=== PATIENT | male | born 1930 | race Caucasian/White ===

== ENCOUNTER 2017-09-26 13:35 | Inpatient (IN) | payer OTHER, MEDICARE ==
[2017-09-26] MEDS ORDERED: ASPIRIN 81 MG TABLET, CHEWABLE PO ONE (14:02)
[2017-09-26] MEDS ORDERED: DILTIAZEM HCL INJ 25 MG/5 ML VIAL IV ONE (14:13)
[2017-09-26] MEDS ORDERED: DILTIAZEM HCL/D5W 125 MG/125 ML RTUINJ IV PRN (14:13)
[2017-09-26] MEDS ORDERED: NORMAL SALINE 500 ML IV ONE ×2 (14:14→23:30)
[2017-09-26 14:33] LABS: ABSOLUTE LYMPHOCYTES (AUTO) 0.8 10^3/uL (0.5-4.7); ABSOLUTE MONOCYTES (AUTO) 0.8 10^3/uL (0.1-1.4); ABSOLUTE NEUT (AUTO) 8.6 10^3/uL (1.7-8.2); BASOPHILS % (AUTO) 0.2 % (0-2); EOSINOPHILS % (AUTO) 0.1 % (0-6); HEMATOCRIT 41.9 % (37.9-51.0); HEMOGLOBIN 13.9 g/dL (13.5-17.0); HGB HCT DIFFERENCE -0.2; LYMPHOCYTES % (AUTO) 7.8 % (13-45); MEAN CORPUSCULAR HEMOGLOBIN 33.6 pg (27.0-33.4); MEAN CORPUSCULAR HGB CONC 33.2 g/dL (32.0-36.0); MEAN CORPUSCULAR VOLUME 101 fl (80-97); MONOCYTES % (AUTO) 8.3 % (3-13); RED BLOOD COUNT 4.15 10^6/uL (4.35-5.55); RED CELL DISTRIBUTION WIDTH 13.4 % (11.5-14.0); SEGMENTED NEUTROPHILS % (AUTO) 83.6 % (42-78); WHITE BLOOD COUNT 10.2 10^3/uL (4.0-10.5)
--- NOTE | 2017-09-26 14:34 | ER Document Report ---
ED Cardiac - General Chief Complaint: Chest Pain Stated Complaint: CHEST PAIN Time Seen by Provider: 09/26/17 14:05 Information source: Patient, Relative - Son helps with history as well, patient somewhat hard of hearing - HPI Patient complains to provider of: Chest pain Notes: 86-year-old male with history of prior myocardial infarction, hypertension presents with chest discomfort he describes as sharp in the left pectoral region. It is somewhat pleuritic. It is nonradiating though he has had some numbness in his left hand. He noted this this morning approximately at 0500 while awakening. He has describes some mild shortness of breath to his family though initially told me there were no other associated symptoms. No cough or cold symptoms otherwise, fever. He has had some mild generalized aches on further questioning. Denies history of arrhythmia. Denies anticoagulation. Denies any bleeding currently. Denies any trauma. No syncope, palpitations, hemoptysis. Patient does not have a local physician as he is [place] [facility] [place] and has not been seen by the [facility] yet. - Related Data Allergies/Adverse Reactions: No Known Allergies Allergy (Verified 09/26/17 13:38) Past Medical History - Social History Smoking Status: Never Smoker Family History: Reviewed & Not Pertinent Review of Systems - Review of Systems -: Yes All other systems reviewed and negative Physical Exam - Vital signs Vitals: Pulse Pulse Ox 110 H 100 09/26/17 13:46 09/26/17 13:46 Interpretation: Tachycardic - Notes Notes: Physical Exam: GENERAL: VS as per nursing doc. Well-appearing, well-nourished and in no acute distress. HEAD: Atraumatic, normocephalic. EYES: Pupils equal round and reactive to light, extraocular movements intact, sclera anicteric, no conjunctival injection or discharge. ENT: Nares patent, oropharynx clear without exudates. Moist mucous membranes. NECK: Supple without lymphadenopathy. No JVD. No Carotid Bruits. LUNGS: Breath sounds are diminished bilaterally and equal. No wheezes. Basalilar rales bilaterally. HEART: Tachycardic, irregularly irregular. No murmur noted.. Equal peripheral pulses. ABDOMEN: Soft, non-tender EXTREMITIES: No calf tenderness. Negative Homans. No pitting edema. NEUROLOGICAL: Cranial nerves grossly intact. Normal speech. Normal sensory and motor exams. No gross cerebellar abnormalities. PSYCH: Normal mood, normal affect. SKIN: Warm, dry, no cyanosis, no splinter hemorrhages. Cap refill < 2 sec. Course - Vital Signs Vital signs: Temp Pulse Resp BP Pulse Ox 98.1 F 84 24 H 104/49 L 89 L 09/26/17 18:56 09/26/17 20:00 09/26/17 18:56 09/26/17 20:00 09/26/17 18:56 - Laboratory Result Diagrams: 09/26/17 14:10 09/26/17 14:10 Laboratory results interpreted by me: 09/26/17 09/26/17 09/26/17 14:10 14:10 14:10 RBC 4.15 L MCV 101 H MCH 33.6 H Seg Neutrophils % 83.6 H Lymphocytes % 7.8 L Absolute Neutrophils 8.6 H D-Dimer 1.27 H Est GFR (Non-Af Amer) 56 L Direct Bilirubin 0.5 H Creatine Kinase 45 L - Diagnostic Test Radiology reviewed: Reports reviewed - CTA of chest showed small bilateral effusions. - Consults Busteed/Christopher Time consulted: 16:15 - They will see and admit. Discharge - Discharge Clinical Impression: Atrial fibrillation with rapid ventricular response Chest pain Qualifiers: Chest pain type: precordial pain Qualified Code(s): R07.2 - Precordial pain Condition: Fair Disposition: ADMITTED INPATIENT Admitting Provider: Dr. White Unit Admitted: [facility]
[2017-09-26 14:53] LABS: ALANINE AMINOTRANSFERASE 35 U/L (21-72); ALBUMIN 4.2 g/dL (3.5-5.0); ALKALINE PHOSPHATASE 112 U/L (38-126); ANION GAP 14 (5-19); ASPARTATE AMINO TRANSFERASE 26 U/L (17-59); BILIRUBIN,DIRECT 0.5 mg/dL (0.0-0.4); BILIRUBIN,TOTAL 1.1 mg/dL (0.2-1.3); BLOOD UREA NITROGEN 17 mg/dL (7-20); CALCIUM 9.4 mg/dL (8.4-10.2); CARBON DIOXIDE 29 mmol/L (22-30); CHLORIDE 101 mmol/L (98-107); CREATINE KINASE 45 U/L (55-170); CREATININE RESULT 1.23 mg/dL (0.52-1.25); GLUCOSE 105 mg/dL (75-110); POTASSIUM 4.2 mmol/L (3.6-5.0); SODIUM 143.6 mmol/L (137-145); TOTAL PROTEIN 7.2 g/dL (6.3-8.2)
--- NOTE | 2017-09-26 15:04 | RADIOLOGY REPORT (SQ) ---
EXAM DESCRIPTION: CHEST SINGLE VIEW COMPLETED DATE/TIME: 09/26/2017 2:47 pm REASON FOR STUDY: cp COMPARISON: None. EXAM PARAMETERS: NUMBER OF VIEWS: One view. TECHNIQUE: Single frontal radiographic view of the chest acquired. RADIATION DOSE: NA LIMITATIONS: None. FINDINGS: LUNGS AND PLEURA: Bilateral pleural effusions. No opacities. MEDIASTINUM AND HILAR STRUCTURES: No masses. Contour normal. HEART AND VASCULAR STRUCTURES: Heart enlarged without overt failure. BONES: No acute findings. HARDWARE: None in the chest. OTHER: No other significant finding. IMPRESSION: Heart enlarged without overt failure. Bilateral pleural effusions. TECHNICAL DOCUMENTATION: JOB ID: [id number] [employer]- All Rights Reserved
[2017-09-26 15:05] LABS: TROPONIN I < 0.012 ng/mL
--- NOTE | 2017-09-26 15:59 | RADIOLOGY REPORT (SQ) ---
EXAM DESCRIPTION: CTA CHEST COMPLETED DATE/TIME: 09/26/2017 3:43 pm REASON FOR STUDY: Pleuritic CP, Elevated DDimer, New onset CP/Afib COMPARISON: Chest radiograph TECHNIQUE: CT scan of the chest performed using helical scanning technique with dynamic intravenous contrast injection. Images reviewed with lung, soft tissue and bone windows. Reconstructed coronal and sagittal MPR images reviewed. Additional 3 dimensional post-processing performed to develop Maximal Intensity Projection images (MN P). All images stored on PACS. All CT scanners at this facility use dose modulation, iterative reconstruction, and/or weight based d osing when appropriate to reduce radiation dose to as low as reasonably achievable (ALARA). [facility]: Dose Right [facility]: CareDose [facility]: Dose Right [facility]: Teradose 4D [facility]: Left of the [employer] CONTRAST TYPE AND DOSE: contrast/concentration: Isovue 370.00 mg/ml; Total Contrast Delivered: 78.0 ml; Total Saline Delivered: 97.0 ml 78 Isovue 370- low osmolar. Contrast bolus optimized for the pulmonary arteries. Not diagnostic for the aorta. RENAL FUNCTION: Creatinine 1.23 RADIATION DOSE: . LIMITATIONS: None. FINDINGS: LUNGS AND PLEURA: Small bilateral pleural effusions. Minimal basilar airspace disease. AORTA AND GREAT VESSELS: No aneurysm. Contrast bolus not optimized for the aorta. HEART: No pericardial effusion. No significant coronary artery calcifications. PULMONARY ARTERIES: No emboli visualized in the main pulmonary arteries or the segmental branches. HILAR AND MEDIASTINAL STRUCTURES: No identified masses or abnormal nodes. HARDWARE: None in the chest. UPPER ABDOMEN: No significant findings. Limited exam. THYROID AND OTHER SOFT TISSUES: No masses. No adenopathy. BONES: No acute or significant finding. 3D MIPS: Confirm above findings. OTHER: No other significant finding. IMPRESSION: No pulmonary emboli. Small bilateral pleural effusions with basilar airspace disease. COMMENT: Quality ID # [id number]: Final reports with documentation of one or more dose reduction techniques (e.g., Automated exposure control, adjustment of the mA and/or kV according to patient size, use of iterative reconstruction technique) TECHNICAL DOCUMENTATION: JOB ID: [id number] [employer]- All Rights Reserved
[2017-09-26] MEDS ORDERED: OXYCODONE-ACETAMINOPHEN 5-325 MG TABLET PO PRN (17:00)
[2017-09-26] MEDS ORDERED: ONDANSETRON HCL INJ/PF 4 MG/2 ML SDV IV PRN (17:00)
[2017-09-26] MEDS ORDERED: ACETAMINOPHEN 325 MG TABLET PO PRN (17:00)
[2017-09-26] MEDS ORDERED: ZOLPIDEM TARTRATE 5 MG TABLET PO PRN (17:00)
[2017-09-26] MEDS ORDERED: METOPROLOL SUCCINATE 50 MG TAB.SR.24H PO ONE (18:30)
--- NOTE | 2017-09-26 18:46 | PDOC H&P ---
History of Present Illness Admission Date/PCP: 09/26/17 16:56 Patient complains of: Chest pain since this morning History of Present Illness: GULSHAN FRASER is a 86 year old male was brought to ED by his power of real estate attorney since patient had been experiencing chest pain in the middle of his chest since this morning. Patient took 4 nitroglycerin with not major improvement. History taking has been somewhat difficult that because patient is hard of hearing. He related that pain went slowly by itself. In addition chest pain was accompanied by shortness of breath. He does have a history of a heart attack and had a stated putting 10 years ago. He had recently moved to this area and he had not been taking his regular medications. He had not been evaluated by a weigher and grader for a while. When patient arrived to emergency room he was found to be on atrial fibrillation with a ventricular rate of 130. Patient was administered 10 mg of Cardizem IV with further improvement. Our service was contacted for further management and prompted to admit. Past Medical History Cardiac Medical History: Reports: Myocardial Infarction, Hypertension Pulmonary Medical History: Reports: None EENT Medical History: Reports: None Neurological Medical History: Reports: None Endocrine Medical History: Reports: None Renal/ Medical History: Reports: None Malignancy Medical History: Reports: None GI Medical History: Reports: Gastroesophageal Reflux Disease Musculoskeltal Medical History: Reports: Arthritis Skin Medical History: Reports: None Psychiatric Medical History: Reports: None Traumatic Medical History: Reports: None Hematology: Reports: None Infectious Medical History: Reports: None Past Surgical History Past Surgical History: Reports: Cardiac Catheterization, Coronary Stent Social History Information 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 Lives with: Alone Smoking Status: Never Smoker Frequency of Alcohol Use: None Hx Recreational Drug Use: No Drugs: None Hx Prescription Drug Abuse: No - Advance Directive Resuscitation Status: Do Not Resuscitate Family History Family History: CAD, Hypertension Parental Family History Reviewed: Yes Children Family History Reviewed: Yes Sibling(s) Family History Reviewed.: Yes Medication/Allergy Allergies/Adverse Reactions: No Known Allergies Allergy (Verified 09/26/17 13:38) Review of Systems ROS unobtainable: Other - Difficulty since patient is hard of hearing Constitutional: ABSENT: headache(s), night sweats, weakness Eyes: ABSENT: visual disturbances Ears: PRESENT: other - Hard of hearing Cardiovascular: PRESENT: chest pain, dyspnea on exertion. ABSENT: palpitations Respiratory: PRESENT: dyspnea Gastrointestinal: ABSENT: abdominal pain, nausea, vomiting Neurological: ABSENT: focal weakness Physical Exam Vital Signs: Temp Pulse Resp BP Pulse Ox 110 H 21 H 100/72 95 09/26/17 13:46 09/26/17 16:42 09/26/17 16:42 09/26/17 16:42 General appearance: PRESENT: no acute distress, cooperative, obese Head exam: PRESENT: atraumatic, normocephalic Eye exam: PRESENT: EOMI, PERRLA Mouth exam: PRESENT: moist Teeth exam: PRESENT: poor dentation Neck exam: PRESENT: full ROM. ABSENT: JVD, tenderness Respiratory exam: PRESENT: crackles, decreased breath sounds Cardiovascular exam: PRESENT: irregular rhythm. ABSENT: diastolic murmur, systolic murmur Vascular exam: PRESENT: normal capillary refill GI/Abdominal exam: PRESENT: normal bowel sounds, soft. ABSENT: guarding, tenderness Extremities exam: ABSENT: joint swelling, pedal edema Musculoskeletal exam: PRESENT: full ROM Neurological exam: PRESENT: alert, oriented to person, oriented to place Psychiatric exam: PRESENT: appropriate affect, normal mood Skin exam: PRESENT: normal color Results Impressions: Chest X-Ray 09/26/17 14:02 IMPRESSION: Heart enlarged without overt failure. Bilateral pleural effusions. Chest/Abdomen CTA 09/26/17 15:02 IMPRESSION: No pulmonary emboli. Small bilateral pleural effusions with basilar airspace disease. Assessment & Plan - Diagnosis (1) GERD (gastroesophageal reflux disease) Qualifiers: Esophagitis presence: esophagitis presence not specified Qualified Code(s) : K21.9 - Gastro-esophageal reflux disease without esophagitis Is this a current diagnosis for this admission?: Yes Plan: Patient will be placed on PPI (2) Atrial fibrillation with rapid ventricular response Is this a current diagnosis for this admission?: Yes Plan: Noted that he was supposed to be on Toprol-XL 100 mg 1 p.o. daily and to restart. Patient will be placed on telemetry unit and will trend troponin. To consult cardiology. Will place patient on Eliquis adjusted to his age (3) Chest pain Qualifiers: Chest pain type: precordial pain Qualified Code(s): R07.2 - Precordial pain Is this a current diagnosis for this admission?: Yes Plan: Likely precipitated due to rapid ventricular response. To trend troponin and consult cardiology (4) Pleural effusion Is this a current diagnosis for this admission?: Yes Plan: Order BNP. Patient may require Lasix since likely is due to cardiac issue (5) Chronic kidney disease (CKD) stage G1/A2, glomerular filtration rate (GFR) equal to or greater than 90 mL/min/1.73 square meter and albuminuria creatinine ratio between 30-299 mg/g Is this a current diagnosis for this admission?: Yes Plan: Will trend for now. [facility] - Time Time Spent: 50 to 70 Minutes Medications reviewed and adjusted accordingly: Yes Anticipated discharge: Home with Homehealth Within: within 48 hours - Inpatient Certification Based on my medical assessment, after consideration of the patient's comorbidities, presenting symptoms, or acuity I expect that the services needed warrant INPATIENT care.: Yes I certify that my determination is in accordance with my understanding of Medicare's requirements for reasonable and necessary INPATIENT services [42 CFR 412.3e].: Yes Medical Necessity: Need Close Monitoring Due to Risk of Patient Decompensation
[2017-09-26] MEDS: LANSOPRAZOLE 15 MG TAB.RAP.DR PO SCH (18:59)
[2017-09-26] MEDS: APIXABAN 2.5 MG TABLET PO SCH (18:59)
[2017-09-26 20:42] LABS: TROPONIN I 0.02 ng/mL
[2017-09-26] MEDS: ATORVASTATIN CALCIUM 40 MG TABLET PO SCH (22:05)
[2017-09-26] MEDS: ASPIRIN 81 MG TABLET, ENT COATED PO SCH (22:05)
[2017-09-27] MEDS ORDERED: NORMAL SALINE 1000 ML 1,000 ML IV ONE (01:00)
[2017-09-27 02:22] LABS: ABSOLUTE LYMPHOCYTES (AUTO) 1.3 10^3/uL (0.5-4.7); ABSOLUTE MONOCYTES (AUTO) 0.9 10^3/uL (0.1-1.4); ABSOLUTE NEUT (AUTO) 4.6 10^3/uL (1.7-8.2); BASOPHILS % (AUTO) 0.2 % (0-2); EOSINOPHILS % (AUTO) 0.7 % (0-6); HEMATOCRIT 33.8 % (37.9-51.0); HGB HCT DIFFERENCE 0.4; LYMPHOCYTES % (AUTO) 18.5 % (13-45); MEAN CORPUSCULAR HEMOGLOBIN 33.9 pg (27.0-33.4); MEAN CORPUSCULAR HGB CONC 33.7 g/dL (32.0-36.0); MEAN CORPUSCULAR VOLUME 101 fl (80-97); MONOCYTES % (AUTO) 12.8 % (3-13); RED BLOOD COUNT 3.36 10^6/uL (4.35-5.55); RED CELL DISTRIBUTION WIDTH 13.1 % (11.5-14.0); SEGMENTED NEUTROPHILS % (AUTO) 67.8 % (42-78); WHITE BLOOD COUNT 6.8 10^3/uL (4.0-10.5)
[2017-09-27 02:23] LABS: HEMOGLOBIN 11.4 g/dL (13.5-17.0)
[2017-09-27 02:40] LABS: ANION GAP 9 (5-19); BLOOD UREA NITROGEN 17 mg/dL (7-20); CARBON DIOXIDE 26 mmol/L (22-30); CHLORIDE 109 mmol/L (98-107); CREATININE RESULT 1.21 mg/dL (0.52-1.25); GLUCOSE 106 mg/dL (75-110); SODIUM 144.1 mmol/L (137-145)
[2017-09-27] MEDS: LANSOPRAZOLE 15 MG TAB.RAP.DR PO SCH ×2 (05:25→16:08)
[2017-09-27] MEDS ORDERED: METOPROLOL SUCCINATE 50 MG TAB.SR.24H PO SCH (10:00)
[2017-09-27] MEDS: APIXABAN 2.5 MG TABLET PO SCH ×2 (10:14→18:36)
[2017-09-27] MEDS: DOCUSATE SODIUM 100 MG CAPSULE PO SCH (10:15)
[2017-09-27] MEDS ORDERED: METOPROLOL SUCCINATE 25 MG TAB.SR.24H PO ONE (14:31)
--- NOTE | 2017-09-27 16:34 | PDOC PROGRESS REPORT ---
Subjective Progress Note for:: 09/27/17 Subjective:: Patient relates that he is not having chest pain any longer ROS All organ systems evaluated and negative except as in subjective All significant laboratories and diagnostics have been reviewed Reason For Visit: ATRIAL FIBRILLATION WITH AVR,CHEST PAIN Physical Exam Vital Signs: Temp Pulse Resp BP Pulse Ox 99.0 F 88 20 111/69 98 09/27/17 03:37 09/27/17 06:00 09/27/17 03:37 09/27/17 06:00 09/27/17 03:37 Intake & Output 09/26/17 09/27/17 09/28/17 06:59 06:59 06:59 Intake Total 1740 Output Total 650 Balance 1090 Weight 94 kg General appearance: PRESENT: no acute distress, cooperative, obese Head exam: PRESENT: atraumatic, normocephalic Eye exam: PRESENT: EOMI, PERRLA Ear exam: PRESENT: normal external ear exam Mouth exam: PRESENT: moist, neck supple Teeth exam: PRESENT: poor dentation Neck exam: PRESENT: full ROM. ABSENT: JVD, tenderness Respiratory exam: PRESENT: clear to auscultation francisco Cardiovascular exam: PRESENT: irregular rhythm. ABSENT: diastolic murmur, systolic murmur Vascular exam: PRESENT: normal capillary refill GI/Abdominal exam: PRESENT: normal bowel sounds, soft. ABSENT: guarding, tenderness Extremities exam: ABSENT: joint swelling, pedal edema Musculoskeletal exam: PRESENT: full ROM Neurological exam: PRESENT: alert, awake, oriented to person, oriented to place Psychiatric exam: PRESENT: appropriate affect, normal mood Results Laboratory Results: 09/27/17 02:06 09/27/17 02:06 09/27/17 09/27/17 02:06 02:06 WBC 6.8 RBC 3.36 L Hgb 11.4 L D Hct 33.8 L MCV 101 H MCH 33.9 H MCHC 33.7 RDW 13.1 Plt Count 138 L Seg Neutrophils % 67.8 Lymphocytes % 18.5 Monocytes % 12.8 Eosinophils % 0.7 Basophils % 0.2 Absolute Neutrophils 4.6 Absolute Lymphocytes 1.3 Absolute Monocytes 0.9 Absolute Eosinophils 0.0 Absolute Basophils 0.0 Sodium 144.1 Potassium 4.0 Chloride 109 H Carbon Dioxide 26 Anion Gap 9 BUN 17 Creatinine 1.21 Est GFR ( Amer) > 60 Est GFR (Non-Af Amer) 57 L Glucose 106 Calcium 8.0 L 09/26/17 09/27/17 20:05 02:06 Troponin I 0.020 0.013 NT-Pro-B Natriuret Pep 3600 H Impressions: Chest X-Ray 09/26/17 14:02 IMPRESSION: Heart enlarged without overt failure. Bilateral pleural effusions. Chest/Abdomen CTA 09/26/17 15:02 IMPRESSION: No pulmonary emboli. Small bilateral pleural effusions with basilar airspace disease. Assessment & Plan - Diagnosis (1) GERD (gastroesophageal reflux disease) Qualifiers: Esophagitis presence: esophagitis presence not specified Qualified Code(s) : K21.9 - Gastro-esophageal reflux disease without esophagitis Is this a current diagnosis for this admission?: Yes Plan: Continue PPI (2) Atrial fibrillation with rapid ventricular response Is this a current diagnosis for this admission?: Yes Plan: Persisting. Had an episode of hypotension which required fluid challenges. Cardiology consulted. To start Toprol-XL 12.5 mg 1 p.o. daily. To order nuclear stress test (3) Chest pain Qualifiers: Chest pain type: precordial pain Qualified Code(s): R07.2 - Precordial pain Is this a current diagnosis for this admission?: Yes Plan: Likely precipitated due to rapid ventricular response. Order nuclear stress test. (4) Pleural effusion Is this a current diagnosis for this admission?: Yes Plan: BNP elevated. For now hold off any diuresis due to low blood pressure. Order echocardiogram (5) Chronic kidney disease (CKD) stage G1/A2, glomerular filtration rate (GFR) equal to or greater than 90 mL/min/1.73 square meter and albuminuria creatinine ratio between 30-299 mg/g Is this a current diagnosis for this admission?: Yes Plan: Will trend for now. POA advised to [facility] to get [facility] (6) Congestive heart failure Qualifiers: Congestive heart failure type: unspecified congestive heart failure type Congestive heart failure chronicity: acute on chronic Qualified Code(s): I50.9 - Heart failure, unspecified Is this a current diagnosis for this admission?: Yes Plan: Order echocardiogram. At the present time unable to tell whether systolic versus diastolic recommendation. However presentation is more consistent with acute on chronic. Will await cardiology recommendations - Time Time Spent with patient: 15-24 minutes Medications reviewed and adjusted accordingly: Yes Anticipated discharge: Home with Homehealth Within: within 48 hours - Inpatient Certification Based on my medical assessment, after consideration of the patient's comorbidities, presenting symptoms, or acuity I expect that the services needed warrant INPATIENT care.: Yes I certify that my determination is in accordance with my understanding of Medicare's requirements for reasonable and necessary INPATIENT services [42 CFR 412.3e].: Yes Medical Necessity: Need Close Monitoring Due to Risk of Patient Decompensation, Other - Cardiology evaluation
[2017-09-27] MEDS: ATORVASTATIN CALCIUM 40 MG TABLET PO SCH (22:46)
[2017-09-27] MEDS: METOPROLOL SUCCINATE 25 MG TAB.SR.24H PO SCH (22:46)
[2017-09-27] MEDS: ASPIRIN 81 MG TABLET, ENT COATED PO SCH (22:46)
--- NOTE | 2017-09-27 23:44 | CONSULTATION REPORT E ---
Consultation Report NAME: GULSHAN FRASER : 1930 AGE: 86Y DATE: 09/27/2017 308 A TO: ANGEL VIVAS M.D. FROM: Requesting Physician The patient was seen at 8:00 a.m. this morning, and 45 minutes was spent on this patient. Note, the patient is a difficult historian and he is also hard of hearing; hence, not much details could be obtained. HISTORY OF PRESENT ILLNESS: The patient is an 86-year-old male with known history of coronary artery disease, old CO, history of stent placed in unknown vessel, hypertension, chronic kidney disease, who states that yesterday, while sitting, started having chest pain which he states is in the left front of the chest. It was associated with some shortness of breath. There was no radiation. The pain lasted for about 30 minutes and spontaneously was resolved. He states that when he walked around, it did not increase. He also suggests that there was some tenderness to light touch in the left front of the chest. There is no PND or orthopnea. He did have shortness of breath. The patient denies any palpitations but when he came to the emergency room, he was in atrial fibrillation with rapid ventricular response. There is no prior history of atrial fibrillation. He also has history of deafness. There is no syncope. There is no PND, orthopnea, or leg edema. PAST MEDICAL HISTORY: Positive for: 1. History of coronary artery disease. 2. History of myocardial infarction over 10 years ago, and had a stent placed in unknown vessel. No recent anginal symptoms. 3. Noncardiac atypical chest pain as mentioned earlier. 4. History of chronic kidney disease. 5. History of GERD. 6. History of arthritis. 7. No history of TIA or CVA. 8. No history of diabetes mellitus or thyroid disease. 9. No history of anxiety or depression but the patient seems to be slightly slow in response. PAST SURGICAL HISTORY: Positive for: 1. Cardiac catheterization. 2. Coronary stent placement. CODE STATUS: The patient is DNR. His daughter is the surrogate healthcare decision maker. FAMILY HISTORY: Positive for coronary artery disease and hypertension. ALLERGIES: No known drug allergies. MEDICATIONS: 1. Tylenol 325 mg p.o. q.4 h. p.r.n. 2. Eliquis 2.5 mg p.o. b.i.d. 3. Aspirin 81 mg p.o. at bedtime. 4. Atorvastatin 40 mg p.o. at bedtime. 5. Colace 100 mg p.o. daily. 6. Prevacid 15 mg p.o. b.i.d. 7. Metoprolol succinate/Toprol XL 25 mg p.o. daily. 8. Normal saline bolus of 500 mL yesterday. 9. Zofran 4 mg IV q.6 h. p.r.n. 10. Oxycodone/acetaminophen 1 tablet p.o. q.6 h. p.r.n. 11. Ambien 5 mg p.o. at bedtime p.r.n. REVIEW OF SYSTEMS: CONSTITUTIONAL: He denies any fever, chills, or rigors. HEAD: Denies any headache or dizziness. EYES: No history of amblyopia or diplopia. No history of amaurosis fugax. EARS: The patient is hard of hearing but has no tinnitus. No recurrent ear infections. NOSE: No history of hay fever. No history of nasal polyps. No history of recurrent nosebleeds. MOUTH: No history of altered taste sensation. No bleeding from the gums. No history of ulcers in the mouth. THROAT: No odynophagia or dysphagia. No history of recurrent sore throats. SKIN: No history of pruritus. No history of yellowish discoloration of the skin. No psoriasis. No skin cancer. NECK: No neck pain. No swelling in the neck. No goiter. LUNGS: No history of COPD or asthma. No history of sleep apnea. No history of pulmonary embolism. No recent cough or sputum production. The patient, when he had the chest pain, was short of breath for a little while. The patient also seems to have some chest pain which increases with deep breathing as he told the attending physician who saw the patient first. But to me, he does not remember. There is no history of hemoptysis. No history of pleuritic chest pain. CARDIAC: History of hypertension. First episode of atrial fibrillation with rapid ventricular response *------*. Patient is still in atrial fibrillation. There is a history of coronary artery disease. No recent anginal symptoms except for atypical noncardiac chest pain as mentioned earlier. He has a history of CO 10 years ago with stent placement. No history of congestive heart failure. No history of palpitations even though the patient has been in atrial fibrillation. No leg edema. No PND, orthopnea, or syncope. GI: History of GERD. No history of GI bleed. No history of peptic ulcer disease. No history of fatty food intolerance. No history of altered bowel movements. No abdominal pain. MUSCULOSKELETAL: History of arthritis but no collagen vascular disease. RENAL: Patient has symptoms of *------* controlled at home with Flomax. He has a history of chronic kidney disease. At present, it is a stage 3A. The patient's baseline is not known. No hematuria, pyuria, or dysuria. No symptoms of UTI. ENDOCRINE: No history of diabetes mellitus or thyroid disease. No history of polydipsia or polyuria. No history of heat or cold intolerance. METABOLIC: No history of obesity. Denies history of hyperlipidemia but lipids have not been checked. CENTRAL NERVOUS SYSTEM: No history of TIA or CVA. No history of seizures, headaches, or migraines. No history of gait imbalance. PSYCHIATRIC: No history of anxiety or depression. The patient's mental status appears to be slightly slow. This may be due to being hard of hearing. VASCULAR: No history of calf or buttock claudication. No history of DVT. HEMATOLOGIC: No history of bleeding diathesis. No history of clotting disorders. No history of hematological malignancies. PHYSICAL EXAMINATION: GENERAL: The patient is slightly overweight, well groomed, in no acute distress at present. He denies any chest pain or discomfort and no shortness of breath. VITAL SIGNS: He is afebrile with a temperature of 98.2 degrees Fahrenheit, pulse is 81 beats per minute, blood pressure 119/74, respirations 18 per minute, O2 saturation 99% on 2L nasal cannula. HEAD: Atraumatic, normocephalic. EYES: Pupils are equal, round, regular, reactive to light and accommodation. Extraocular movements are normal. There is no conjunctival pallor. There is no scleral icterus. EARS: Tympanic membranes are intact. External auditory canals are clear. NOSE: There is no deviated nasal septum. There are no nasal polyps. There is no inflammation of the nasal mucous membranes. MOUTH: Mucous membranes of the mouth and tongue are moist. There are no ulcers. There is no bleeding from the gums. THROAT: There is no redness of the oropharynx. There is no exudate. SKIN: There are no skin rashes. There is no petechiae or ecchymosis. There are no skin lesions. NECK: Supple. There is no JVD. There is no lymphadenopathy. Carotids are equal. There is no bruit. There is no goiter. Trachea is central. LUNGS: Clear to auscultation and percussion except for an area of dullness with absent breath sounds in both the bases. There is no pleural rub heard. HEART: S1, S2 is heard. S1 is of variable intensity. There is no S3 gallop. There is no S4 gallop. There is a systolic murmur in the left sternal border and the apex. There is no rub. ABDOMEN: Soft, nontender. There is no hepatosplenomegaly. Bowel sounds are well heard. There are no tender areas or masses. EXTREMITIES: Femorals are slightly diminished. There is no femoral bruit. Leg pulses are diminished. There is no pedal edema. There is no cyanosis or clubbing. There is no DVT or cellulitis. There is no calf tenderness. CENTRAL NERVOUS SYSTEM: The patient is conscious, awake, alert, oriented x3 with no focal deficit. PSYCHIATRIC: The patient's judgement and insight are intact although the patient is slightly slow to react. IMAGING STUDIES: The patient's chest x-ray shows bilateral pleural effusions, cardiomegaly without failure. The patient's chest CTA shows no pulmonary emboli, small bilateral effusions with baseline airspace disease. The patient's EKG shows atrial fibrillation, right bundle branch block pattern. Cannot exclude old inferior CO. LABORATORY DATA: Sodium 144.1, potassium 4.0, chloride 109, CO2 26, BUN 17, creatinine 1.21, GFR is reduced at 57 mL, glucose is 106, calcium is 8.0. The patient's cardiac enzymes have been negative x3 with a troponin of CK-MB being 1.40 which is normal. CPK being low at 45. Troponin I is less than 0.012, 0.020, and 0.013. His anti-proBNP is 3600; this may be due to his renal failure. TSH is 0.94. Albumin is 4.2. Total protein is 7.2. The patient's d-dimer is 1.27. The patient's white count is 6,800, hemoglobin is 11.4, hematocrit is 33.8, platelet count is 138,000. IMPRESSION: 1. Atrial fibrillation with rapid ventricular response. At present, ventricular response is much better. Would recommend continue the patient on Eliquis. Would recommend increasing the patient's Toprol XL to 25 mg p.o. q.12 h. Continue aspirin. 2. Chest pain, most likely noncardiac. No evidence of CO. EKG shows patient's old myocardial infarction. Patient with no clear cut anginal symptoms. 3. GERD. Most likely cause of patient's chest symptoms. 4. Bilateral basal pneumonia, small, with small bilateral pleural effusion. I would recommend antibiotics. 5. Chronic kidney disease stage 3A. The patient's baseline is not known. Continue current therapy. 6. History of coronary artery disease. No definite anginal symptoms. Noncardiac chest pain as mentioned earlier. 7. History of old myocardial infarction and stent placement. Would need to talk to the doctor to get records. 8. Hypertension. RECOMMENDATION: 1. Continue Eliquis. 2. Continue his current medications including increasing the Toprol XL to 25 mg p.o. q.12 h. 3. Continue Prevacid for his GERD. 4. We will check the patient's lipid panel in the a.m. 5. Continue the patient's aspirin. 6. Later, once the patient settles down, would recommend that the patient have an IV Lexiscan Cardiolite stress test. Note that the patient is awaiting to get an echocardiogram. We will discuss this with the patient after I review it. TIME SPENT: Note, as mentioned earlier, 45 minutes was spent on this patient with more than 50% of the time spent on direct patient care. The patient's medications have been reviewed. His Toprol XL has been increased by me. I discussed a management plan with other caregiving providers on the case. Note, medical decision making is of highly complex nature. We will recheck the patient's EKG in the a.m. and also patient's lipid panel, and also check the patient's hemoglobin A1c to make sure that he is not a diabetic since the patient is not a very reliable historian. DICTATING PHYSICIAN: ANGEL VIVAS M.D. [id number] RO#: [id number] ID: [id number] JOB#: [id number] ACCT: [id number] cc:ANGEL VIVAS M.D. >
[2017-09-28] MEDS: LANSOPRAZOLE 15 MG TAB.RAP.DR PO SCH ×2 (06:24→17:55)
[2017-09-28 07:00] LABS: ALANINE AMINOTRANSFERASE 28 U/L (21-72); ALBUMIN 3.2 g/dL (3.5-5.0); ALKALINE PHOSPHATASE 102 U/L (38-126); ASPARTATE AMINO TRANSFERASE 22 U/L (17-59); BILIRUBIN,DIRECT 0.4 mg/dL (0.0-0.4); BILIRUBIN,TOTAL 0.7 mg/dL (0.2-1.3); CHOLESTEROL 133.93 mg/dL (0-200); Direct HDL 54 mg/dL (>40); TOTAL PROTEIN 5.6 g/dL (6.3-8.2); TRIGLYCERIDES 69 mg/dL (<150)
[2017-09-28 07:11] LABS: DIRECT LDL 61 mg/dL (<100)
--- NOTE | 2017-09-28 08:07 | EKG REPORT ---
SEVERITY:- ABNORMAL ECG - ATRIAL FIBRILLATION, V-RATE 67-140 VENTRICULAR PREMATURE COMPLEX RIGHT BUNDLE BRANCH BLOCK PROBABLE INFERIOR INFARCT, AGE INDETERMINATE : Confirmed by: Carrie Grant 28-Sep-2017 08:06:43
[2017-09-28] MEDS ORDERED: METOPROLOL SUCCINATE 25 MG TAB.SR.24H PO SCH ×2 (10:00)
[2017-09-28] MEDS: APIXABAN 2.5 MG TABLET PO SCH ×2 (12:19→17:29)
[2017-09-28] MEDS: METOPROLOL SUCCINATE 25 MG TAB.SR.24H PO SCH (12:20)
[2017-09-28] MEDS: DOCUSATE SODIUM 100 MG CAPSULE PO SCH (12:23)
[2017-09-28] MEDS ORDERED: REGADENOSON INJ 0.4 MG/5 ML DISP.SYRIN IV ONE (12:34)
[2017-09-28] MEDS ORDERED: DIGOXIN INJ 0.5 MG/2 ML AMPULE IV ONE (16:21)
[2017-09-28] MEDS ORDERED: METOPROLOL SUCCINATE 25 MG TAB.SR.24H PO ONE (16:30)
--- NOTE | 2017-09-28 18:41 | PDOC PROGRESS REPORT ---
Subjective Progress Note for:: 09/28/17 Subjective:: Patient is a 6 year old male presenting with chest pain and afib with RVR. Patient stating that he wants to go home. Patient states that the chest pain is go and he no longer want to be here. Explained to patient that he was still looking at test. Patient states he will walk out of here. Reason For Visit: ATRIAL FIBRILLATION WITH AVR,CHEST PAIN Physical Exam Vital Signs: Temp Pulse Resp BP Pulse Ox 98.3 F 119 H 18 129/87 H 96 09/28/17 15:53 09/28/17 15:53 09/28/17 15:53 09/28/17 15:53 09/28/17 15:53 Intake & Output 09/27/17 09/28/17 09/29/17 06:59 06:59 06:59 Intake Total 1740 946 960 Output Total 650 850 Balance 1090 96 960 Weight 94 kg 94 kg General appearance: PRESENT: no acute distress, well-developed, well-nourished Head exam: PRESENT: atraumatic, normocephalic Eye exam: PRESENT: conjunctiva pink, EOMI, PERRLA. ABSENT: scleral icterus Ear exam: PRESENT: normal external ear exam Mouth exam: PRESENT: moist, tongue midline Neck exam: ABSENT: carotid bruit, JVD, lymphadenopathy, thyromegaly Respiratory exam: PRESENT: clear to auscultation francisco. ABSENT: rales, rhonchi, wheezes Cardiovascular exam: PRESENT: RRR. ABSENT: diastolic murmur, rubs, systolic murmur Pulses: PRESENT: normal dorsalis pedis pul Vascular exam: PRESENT: normal capillary refill GI/Abdominal exam: PRESENT: normal bowel sounds, soft. ABSENT: distended, guarding, mass, organolmegaly, rebound, tenderness Rectal exam: PRESENT: deferred Extremities exam: PRESENT: full ROM. ABSENT: calf tenderness, clubbing, pedal edema Neurological exam: PRESENT: alert, awake, oriented to person, oriented to place , oriented to time, oriented to situation, other - hard of hearing. ABSENT: motor sensory deficit Psychiatric exam: PRESENT: appropriate affect, normal mood. ABSENT: homicidal ideation, suicidal ideation Skin exam: PRESENT: dry, intact, warm. ABSENT: cyanosis, rash Results Laboratory Results: 09/27/17 02:06 09/27/17 02:06 09/28/17 05:42 Total Bilirubin 0.7 AST 22 ALT 28 Alkaline Phosphatase 102 Total Protein 5.6 L Albumin 3.2 L Triglycerides 69 Cholesterol 133.93 LDL Cholesterol Direct 61 VLDL Cholesterol 14.0 HDL Cholesterol 54 09/26/17 09/27/17 20:05 02:06 Troponin I 0.020 0.013 NT-Pro-B Natriuret Pep 3600 H Impressions: Chest X-Ray 09/26/17 14:02 IMPRESSION: Heart enlarged without overt failure. Bilateral pleural effusions. Chest/Abdomen CTA 09/26/17 15:02 IMPRESSION: No pulmonary emboli. Small bilateral pleural effusions with basilar airspace disease. Assessment & Plan - Diagnosis (1) Atrial fibrillation with rapid ventricular response Is this a current diagnosis for this admission?: Yes Plan: Patient rate is not well controlled. He is insisting on going home. Patient metoprolol increased to 50mg po bid. Patient given a dose of digoxin. Patient is also on eliquis. Ischemic work up done today. Awaiting results. Cardiology following. Family will like to speak to the athletic events scorer. (2) Chest pain Qualifiers: Chest pain type: precordial pain Qualified Code(s): R07.2 - Precordial pain Is this a current diagnosis for this admission?: Yes Plan: Most likely secondary to afib with RVR. Now resolved. Ischemic work up completed awaiting results of stress test. (3) Congestive heart failure Qualifiers: Congestive heart failure type: unspecified congestive heart failure type Congestive heart failure chronicity: acute on chronic Qualified Code(s): I50.9 - Heart failure, unspecified Is this a current diagnosis for this admission?: Yes Plan: Uncertain if this is systolic or diastolic. Patient echo was completed. Currently awaiting results. Patient is currently on betablocker. Awaiting the results of the echo prior to add the ACEI or ARB. (4) GERD (gastroesophageal reflux disease) Qualifiers: Esophagitis presence: esophagitis presence not specified Qualified Code(s) : K21.9 - Gastro-esophageal reflux disease without esophagitis Is this a current diagnosis for this admission?: Yes Plan: Continue PPI. (5) Pleural effusion Is this a current diagnosis for this admission?: Yes Plan: Possible due to afib with RVR. Patient does not have any respiratory symptoms at this time. BNP was elevated currently awaiting the results of the echo. (6) CKD (chronic kidney disease) stage 3, GFR 30-59 ml/min Is this a current diagnosis for this admission?: Yes Plan: Patient appears to have a CKD stage 3 which is stable. - Time Time Spent with patient: 15-24 minutes Anticipated discharge: Home with Homehealth Within: within 24 hours - Inpatient Certification Medical Necessity: Significant Comorbidiites Make Outpatient Treatment Too Risky - Patient hea, Need Close Monitoring Due to Risk of Patient Decompensation, Need For Continuous Telemetry Monitoring - Patient heart rate still not well controlled.
--- NOTE | 2017-09-28 19:15 | XCELERA REPORT ---
[address] [address] Transthoracic Echocardiogram Report Name: GULSHAN FRASER Age: 86 yrs Gender: Male : 1930 Patient Status: Inpatient Patient Location: [address] [place] [address] Study Date: 09/28/2017 04:03 PM Procedure: A two-dimensional transthoracic echocardiogram with color flow and Doppler was performed. Study Quality: Technically suboptimal. Reason For Study: Atrial Fibrillation History: Atrial Fibrillation. Ordering Physician: SRI FAM Performed By: Jacqueline Agustin Interpretation Summary The left ventricle is normal in size. LV EF is 40% Left ventricular systolic function is moderately reduced. There is severe basal and mid inferior wall hypokinesiss.The rest of the LV mckeon show moderate hypokinesis. The left atrium is mildly dilated. There is no evidence of mitral valve prolapse. There is no mitral valve stenosis. There is a mild amount of mitral regurgitation There is no aortic valvular vegetation. There is aortic sclerosis without stenosis. There is no LVOT obstruction. No aortic regurgitation is present. There is no tricuspid stenosis. There is a mild amount of tricuspid regurgitation There is mild pulmonary hypertension by echo RVSP is 47 mm of Hg , with RA mean of 10. There is no pericardial effusion. MMode/2D Measurements & Calculations RVDd: 4.0 cm LVIDd: 4.6 cm FS: 19.9 % Ao root diam: 3.0 cm IVSd: 0.91 cm LVIDs: 3.7 cm EDV(Teich): 97.5 ml Ao root area: 7.0 cm2 LVPWd: 0.92 cm ESV(Teich): 57.6 ml EF(Teich): 41.0 % Doppler Measurements & Calculations MV E max edi: MV dec slope: Ao V2 max: LV V1 max P.4 cm/sec 910.0 cm/sec2 113.6 cm/sec 1.9 mmHg MV A max edi: MV dec time: Ao max PG: LV V1 max: 39.6 cm/sec 0.11 sec 5.2 mmHg 69.8 cm/sec MV E/A: 2.6 PA V2 max: TR max edi: 45.1 cm/sec 279.5 cm/sec PA max PG: TR max P.6 mmHg 0.81 mmHg Left Ventricle The left ventricle is normal in size. There is normal left ventricular wall thickness. LV EF is 40%. Left ventricular systolic function is moderately reduced. LV diastolic function could not be adequately assessed due to atrial fibrilation. There is severe basal and mid inferior wall hypokinesiss.The rest of the LV mckeon show moderate hypokinesis. There is no thrombus. Right Ventricle The right ventricle is not well visualized secondary to technical limitations. Atria The right atrium is normal. The left atrium is mildly dilated. Mitral Valve There is mild mitral annular calcification. There is no evidence of mitral valve prolapse. There is no vegetation seen on the mitral valve. There is no mitral valve stenosis. There is a mild amount of mitral regurgitation. Aortic Valve There is no aortic valvular vegetation. There is aortic sclerosis without stenosis. There is no LVOT obstruction. No aortic regurgitation is present. Tricuspid Valve There is no tricuspid stenosis. There is a mild amount of tricuspid regurgitation. There is mild pulmonary hypertension by echo. RVSP is 47 mm of Hg , with RA mean of 10. Pulmonic Valve There is no pulmonic valvular stenosis. There is no pulmonic valvular regurgitation. Great Vessels The aortic root is normal size. Effusions There is no pericardial effusion. : SRI FAM > Yaz Ponce
--- NOTE | 2017-09-28 20:03 | DRAGON STRESS TEST REPORT ---
Intravenous Lexiscan Cardiolite stress test using single photon emmision computerized tomography. Date of procedure: 09/28/2017. Ordering Provider: Dr.Mila Degroot Patient' s status: In Patient Indication: Chest pain in a patient with old myocardial infarction and stent placement, and admitted with atrial fibrillation with rapid ventricular response.. Coronary risk factors: Age, hypertension, and dyslipidemia. Resting EKG: Atrial Fibrillation. Right bundle branch block pattern. Possible interrupted old inferior HI. Stress EKG: No changes of ischemia. The patient had no chest pain or discomfort, and there were no arrhythmias seen. Reason for termination: Protocol. Conclusions: Normal EKG and hemodynamic response to IV Lexiscan. Nuclear data: At rest the patient was given 14.7 for millicuries of technetium 99m sestamibi injected intravenously. As per protocol rest non gated SPECT images were obtained. Subsequently the patient was given intravenous Lexiscan at a dose of 0.4 mg in 5 mL intravenously, followed by flush with normal saline. Subsequently the stress dose of 44.3 millicuries of technetium 99m sestamibi was injected intravenously. As per protocol stress gated images were obtained. Nuclear interpretation: Review of images showed that there is a perfusion defect involving the basal and mid inferior mckeon in both the rest and stress images. This area of basal and mid inferior wall had very much decreased motion contraction and thickening by gated study hence this is consistent with myocardial infarction . The rest of the segments of the myocardium had normal perfusion at rest, and normal perfusion post stress with IV Lexiscan. The rest of the segments of the myocardium had normal motion, contraction, and thickening by gated study. T. I D. ratio was normal at 1.10. Computer read rest, and stress left ventricular ejection fraction were 38 %, and 55 %, respectively. Conclusion: 1. There is no scintigraphic evidence of Lexiscan induced myocardial ischemia. 2. There is scintigraphic evidence of myocardial infarction/scar involving the basal and mid inferior mckeon. Recommendations: 1. Aggressive treatment of coronary artery disease. 2. Aggressive risk factor modification, and treating the underlying co- morbidities. 3. Check echo for LV ejection fraction correlation. [facility]
[2017-09-28] MEDS: ASPIRIN 81 MG TABLET, ENT COATED PO SCH (21:13)
[2017-09-28] MEDS: ATORVASTATIN CALCIUM 40 MG TABLET PO SCH (21:14)
[2017-09-28] MEDS: METOPROLOL SUCCINATE 50 MG TAB.SR.24H PO SCH (21:14)
--- NOTE | 2017-09-29 00:23 | PROGRESS NOTE E ---
Progress Note NAME: GULSHAN FRASER : 1930 AGE: 86Y DATE: 09/28/2017 ROOM: 527 SUBJECTIVE: Note that the patient was seen earlier this morning prior to the stress test and also during the stress test and also later on came up and spoke with the patient, the patient's son and daughter about the patient's result of the stress test. Note, at least combined 45 minutes spent on the 3 visits. The patient denies any chest pain or discomfort. He is still in A-fib with a controlled blood pressure. He continues to have spurts of atrial fibrillation at a rate of 128 beats per minute. He denies any further chest pain. There is no PND, orthopnea. There is no leg edema. *------* ventricular arrhythmias seen. OBJECTIVE: GENERAL: On examination the patient is slightly overweight in no acute distress. He is well-groomed. VITAL SIGNS: Earlier this morning he was afebrile with a temperature of 98.7 degrees Fahrenheit, pulse is 84 beats per minute, blood pressure is 138/94, respirations are 16 per minute, O2 saturations are 98% on room air. HEENT: Head is atraumatic, normocephalic. Eyes: Pupils are equal, round and regular, reactive to light and accommodation. External ocular movements are normal. There is no conjunctival pallor. There is no scleral icterus. ENT is negative. NECK: Supple. There is no JVD. There is no lymphadenopathy. There is no goiter. Carotids are equal. There is no bruit. Trachea is central. LUNGS: Clear to auscultation and percussion. There is no chest wall tenderness. HEART: S1 and S2 is heard. S1 is of variable intensity. There is no S3 gallop. There is no S4 gallop. There is a systolic murmur in the left sternal border and the apex. There is no rub. ABDOMEN: Soft, nontender. There is no hepatosplenomegaly. Bowel sounds are well heard. EXTREMITIES: Femorals are slightly diminished. There are no femoral bruits. Leg pulses are diminished. There is no pedal edema. There is no cyanosis or clubbing. There is no DVT or cellulitis. There is no calf tenderness. CENTRAL NERVOUS SYSTEM: The patient is conscious, awake, alert and oriented x3 with no focal deficits. PSYCHIATRIC: The patient's judgment and insight are intact. His affect is normal. DIAGNOSTIC STUDIES: The patient's EKG shows atrial fibrillation with right bundle branch block pattern, cannot exclude interrupted inferior myocardial infarction old. The patient's stress test shows fixed defect/scar in the basal and mid inferior wall with very minimal amount of reversible ischemia which is very, very minimal and represents buffy-infarct ischemia. The patient's echocardiogram shows systolic function moderately reduced with LV ejection fraction of 40%. There is severe basal and mid inferior wall hypokinesis. The rest of the LV shows moderate hypokinesis. There is no LVH. There is mild amount of mitral regurgitation. There is no mitral valve collapse. There is aortic sclerosis and aortic stenosis. There is no aortic regurgitation. There is no tricuspid stenosis. There is mild amount of tricuspid regurgitation. The right ventricular systolic pressure is 47 mmHg with a mean of 10. There is no pericardial effusion. LABORATORY DATA: The patient's hemoglobin A1c is 5.7. IMPRESSION: 1. ATRIAL FIBRILLATION, AT TIME SPURTS OF RAPID VENTRICULAR RESPONSE. We will increase the patient's Toprol XL to 50 mg p.o. q.12 hours. Continue aspirin. 2. CHEST PAIN, MOST LIKELY NONCARDIAC. NO EVIDENCE OF GA THIS ADMISSION. STRESS TEST SHOWS PRIOR MYOCARDIAL INFARCTION/SCAR AT THE BASE OF THE MID INFERIOR WALL WITH VERY LITTLE/MINIMAL REVERSIBLE ISCHEMIA/BUFFY-INFARCT ISCHEMIA. 3. BILATERAL BASAL PNEUMONIA, SMALL WITH BILATERAL SMALL PLEURAL EFFUSION. This has resolved. 4. CHRONIC KIDNEY DISEASE STAGE 3A. The patient's baseline is not known. 5. HISTORY OF CORONARY ARTERY DISEASE. NO DEFINITE ANGINAL SYMPTOMS. NONCARDIAC CHEST PAIN MENTIONED EARLIER. 6. 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 7. HYPERTENSION. RECOMMENDATIONS: Continue Eliquis, continue Toprol. We will see if we can start the patient on an COLTON inhibitor later on. The findings of the echograph and the stress test were discussed with the patient and patient's son-in-law. We will keep him overnight. We will see if we can send him on a small dose of COLTON inhibitor, although his EF is 40%. The patient and the son-in-law want the patient to follow with me in the office. I gave them my phone number to call me if there are any problems. Note, a total of 45 minutes spent on this patient. His medications have been reviewed and adjusted. Also discussed the stress test and echo findings with the patient and with the attending physician on the case. *------*. Medical decision making is of a highly complex nature in view of the patient's old myocardial infarction and the patient's reduced LV ejection fraction which is moderately reduced. We will need to keep an eye on the patient's LV ejection fraction serially. The patient most likely will be discharged tomorrow morning. We will see him again in the morning and see if I can start the COLTON inhibitor. All of the above discussed with the patient and the patient son-in-law. DICTATING PHYSICIAN: ANGEL VIVAS M.D. [id number] [id number] ID: [id number] JOB#: [id number] ACCT: [id number] cc: >
[2017-09-29] MEDS: LANSOPRAZOLE 15 MG TAB.RAP.DR PO SCH (05:18)
[2017-09-29] MEDS ORDERED: METOPROLOL TARTRATE PF/INJ 5 MG/5 ML SDV IV PRN (08:28)
[2017-09-29] MEDS: APIXABAN 2.5 MG TABLET PO SCH (09:31)
[2017-09-29] MEDS: METOPROLOL SUCCINATE 50 MG TAB.SR.24H PO SCH (09:31)
[2017-09-29] MEDS: DOCUSATE SODIUM 100 MG CAPSULE PO SCH (09:31)
[2017-09-29] MEDS ORDERED: LISINOPRIL 5 MG TABLET PO SCH (10:00)
[2017-09-29] MEDS ORDERED: METOPROLOL SUCCINATE 25 MG TAB.SR.24H PO ONE (10:00)
[2017-09-29] MEDS ORDERED: DIGOXIN INJ 0.5 MG/2 ML AMPULE IV ONE ×3 (11:21→14:30)
[2017-09-29 13:19] VITALS: BP 135/95
[2017-09-29] MEDS ORDERED: LORAZEPAM 1 MG TABLET PO ONE (14:30)
--- NOTE | 2017-09-29 15:46 | PDOC DISCHARGE SUMMARY ---
General - Admit/Disc Date/PCP Admission Date/Primary Care Provider: 09/26/17 16:56 Discharge Date: 09/29/17 - Discharge Diagnosis (1) Atrial fibrillation with rapid ventricular response Is this a current diagnosis for this admission?: Yes (2) Chest pain Is this a current diagnosis for this admission?: Yes (3) Congestive heart failure Is this a current diagnosis for this admission?: Yes (4) GERD (gastroesophageal reflux disease) Is this a current diagnosis for this admission?: Yes (5) Pleural effusion Is this a current diagnosis for this admission?: Yes (6) CKD (chronic kidney disease) stage 3, GFR 30-59 ml/min Is this a current diagnosis for this admission?: Yes - Additional Information Resuscitation Status: Do Not Resuscitate Discharge Diet: Cardiac Discharge Activity: Activity As Tolerated Home Medications: Calcitriol [Rocaltrol 0.25 mcg Capsule] 0.25 mcg PO MOTH@1000 09/27/17 Cholecalciferol (Vitamin D3) [Vitamin D3 1000 Unit Tablet] 1,000 unit PO BID 09/03 Gabapentin [Neurontin 300 mg Capsule] 300 mg PO Q8 09/27/17 Omeprazole 20 mg PO DAILY 09/27/17 Tamsulosin HCl [Flomax] 0.4 mg PO DAILY 09/27/17 Tramadol HCl [Ultram 50 mg Tablet] 50 mg PO BIDP PRN 09/27/17 Apixaban [Eliquis 2.5 mg Tablet] 2.5 mg PO BID #60 tablet 09/28/17 Aspirin [Ecotrin 81 mg EC Tablet] 81 mg PO QHS #30 tabec 09/28/17 Atorvastatin Calcium [Lipitor 40 mg Tablet] 40 mg PO QHS #30 tablet 09/28/17 Metoprolol Succinate [Toprol Xl 50 mg Tab.sr] 50 mg PO Q12 #60 tab.sr.24h Digoxin 0.125 mg PO DAILY #30 solution 09/29/17 Furosemide [Lasix 20 mg Tablet] 20 mg PO QAM #30 tablet 09/29/17 Lisinopril [Prinivil 5 mg Tablet] 5 mg PO DAILY #30 tablet 09/29/17 Mirtazapine [Remeron] 30 mg PO QHS #30 tablet 09/29/17 Potassium Chloride 10 meq PO DAILY #30 tablet.er 09/29/17 History of Present Illness History of Present Illness: GULSHAN FRASER is a 86 year old male brought to the ED by his power of recreation clerk with complaint of chest pain. Patient took 4 nitroglycerin with no major improvement. Patient was found to be in A. fib with RVR with a heart rate of 130. Please refer to H&P dictated by Dr. Degroot for complete details. Hospital Course Hospital Course: Patient presented with what he described as chest pain however he was found to be in A. fib with RVR. This was thought to be the cause of his chest pain. Patient did undergo ischemic workup as a result. His ischemic workup was negative however he did show a depressed EF of 40%. Patient is currently on metoprolol, Lasix and lisinopril. Despite having negative ischemic workup patient is being treated aggressively with statin, aspirin and a beta-garth. Patient does however most likely have coronary artery disease considered that he has a history of myocardial infarction in the past. Patient A. fib with RVR was initially treated with Cardizem however patient remained in A. fib with RVR. Patient was given Toprol XL 25 mg twice daily which was increased to 50 twice daily and then patient was loaded with digoxin. Patient will continue on digoxin 0.125 daily. Patient is also on Eliquis 2.5 twice daily. Patient had pleural effusion which most likely resulted from the A. fib with RVR and a depressed EF. Patient did not have any respiratory symptoms however he is being treated with low-dose Lasix daily. Patient does have CKD stage III which was stable during this admission. Patient also has a history of GERD for which he was on a PPI. Patient does not have an appointment at the [facility] until next year. His power of recreation clerk stated that he can get his prescription filled however patient was offered assistance with his Eliquis being that that medication is extremely expensive. Patient was still in A. fib with RVR on discharge however patient was extremely agitated and the heart rate was not improving due to his agitation. Patient was adamant about being discharged home. Physical Exam Vital Signs: Temp Pulse Resp BP Pulse Ox 98.9 F 123 H 18 135/95 H 96 09/29/17 14:12 09/29/17 14:12 09/29/17 14:12 09/29/17 14:12 09/29/17 14:12 Intake & Output 09/28/17 09/29/17 09/30/17 06:59 06:59 06:59 Intake Total 946 1160 Output Total 850 500 Balance 96 660 Weight 94 kg 91.4 kg General appearance: PRESENT: no acute distress, well-developed, well-nourished Head exam: PRESENT: atraumatic, normocephalic Eye exam: PRESENT: EOMI. ABSENT: scleral icterus Mouth exam: PRESENT: moist Neck exam: ABSENT: carotid bruit, JVD, lymphadenopathy, thyromegaly Respiratory exam: PRESENT: clear to auscultation francisco. ABSENT: rales, rhonchi, wheezes Cardiovascular exam: PRESENT: RRR. ABSENT: diastolic murmur, rubs, systolic murmur Pulses: PRESENT: normal dorsalis pedis pul Vascular exam: PRESENT: normal capillary refill GI/Abdominal exam: PRESENT: normal bowel sounds, soft. ABSENT: distended, guarding, mass, organolmegaly, rebound, tenderness Rectal exam: PRESENT: deferred Extremities exam: PRESENT: full ROM. ABSENT: calf tenderness, clubbing, pedal edema Neurological exam: PRESENT: alert, awake, oriented to person, oriented to place , oriented to time, oriented to situation, other - Appearing. ABSENT: motor sensory deficit Psychiatric exam: PRESENT: agitated, anxious. ABSENT: homicidal ideation, suicidal ideation Skin exam: PRESENT: dry, intact, warm. ABSENT: cyanosis, rash Results Laboratory Results: 09/27/17 02:06 09/27/17 02:06 09/26/17 09/27/17 20:05 02:06 Troponin I 0.020 0.013 NT-Pro-B Natriuret Pep 3600 H Impressions: Chest X-Ray 09/26/17 14:02 IMPRESSION: Heart enlarged without overt failure. Bilateral pleural effusions. Chest/Abdomen CTA 09/26/17 15:02 IMPRESSION: No pulmonary emboli. Small bilateral pleural effusions with basilar airspace disease. Cardiac echo TURP dictation summary. Left ventricle normal size with LVEF is 40%. Left ventricular systolic function is moderately reduced. There is severe basal and mid inferior wall hypokinesis. The rest of the LV wall show moderate hypokinesis. The left atrium is mildly dilated. There is no evidence of mitral valve prolapse. There is no mitral valve stenosis. There is mild mild mitral regurgitation. There is no valvular vegetation. There is aortic sclerosis without stenosis. There is no LVOT obstruction. No aortic regurgitation is present. There is no tricuspid stenosis. There is a mild amount of tricuspid regurgitation. There is mild pulmonary hypertension by echo. RVSP is 47 mmHg with our a mean of 10%. There is no pericardial effusion. CT scan Cardiolite stress test done on 09/28/2017: Conclusion there is no skin radiographic evidence of Lexiscan induced myocardial ischemia. There is skin radiographic evidence of myocardial infarction/scar involving the basal and mid inferior mckeon. Recommendations aggressive treatment of coronary artery disease. Aggressive risk factor modification and treating the underlying comorbidities. Qualifiers PATEINT BEING DISCHARGED WITH ANY OF THE FOLLOWING DIAGNOSIS?: Heart Failure VTE patient discharged on overlapping Therapy?: Yes HF Pt being discharged on ARBS for LVEF less than 40%?: Yes HF Pt with Afib discharged with Warfarin?: No HF Pt discharged on evidence-based Beta Garth:: Yes Plan Time Spent: Greater than 30 Minutes
--- NOTE | 2017-09-29 22:49 | PROGRESS NOTE E ---
Progress Note NAME: GULSHAN FRASER : 1930 AGE: 86Y DATE: 09/29/2017 ROOM: [facility] SUBJECTIVE: Earlier this morning the patient was given 5 mg of lisinopril in the hope that this will release the afterload and see if the patient can go into sinus rhythm. But the patient remains in atrial fibrillation with a heart rate of 110 beats per minute. The patient denies any chest pain or discomfort. There are no palpitations. The patient is asymptomatic. There is no PND, orthopnea. There is no chest pain. There are no TIA or CVA symptoms. There is no bleeding on Eliquis. The patient is very anxious and agitated to go home. He does not want to stay in the hospital. His agitation makes his heart rate go up to 123. Hence, the patient was given a dose of digoxin 0.25 mg IV push and continued the patient on digoxin and Toprol XL and lisinopril and Eliquis. The patient will be discharged at the patient's request. I discussed this with the patient's son-in-law also. OBJECTIVE: GENERAL: On examination at present the patient is a little agitated. VITAL SIGNS: His temperature is 97.8 degrees Fahrenheit, pulse is 110 beats per minute, blood pressure 146/85, respirations are 18 per minute, O2 saturations are 93% on room air. HEENT: Head is atraumatic, normocephalic. Eyes: Pupils are equal, round and regular, reactive to light and accommodation. External ocular movements are normal. There is no conjunctival pallor. There is no scleral icterus. ENT is negative. NECK: Supple. There is no JVD. There is no lymphadenopathy. There is no goiter. Carotids are equal. There is no bruit. Trachea is central. LUNGS: Clear to auscultation and percussion. There is no chest wall tenderness. HEART: S1 and S2 is heard. S1 is of variable intensity. There is no S3 gallop. There is no S4 gallop. There is a systolic murmur in the left sternal border and the apex. There is no rub. ABDOMEN: Soft. There is no hepatosplenomegaly. Bowel sounds are well heard. EXTREMITIES: Femorals are slightly diminished. There are no femoral bruits. Leg pulses are diminished. There is no pedal edema. There is no cyanosis or clubbing. There is no DVT or cellulitis. There is no calf tenderness. CENTRAL NERVOUS SYSTEM: The patient is conscious, awake, alert and oriented x3 with no focal deficits. PSYCHIATRIC: The patient is slightly agitated but otherwise his judgment and insight are intact. INTAKE/OUTPUT: The patient's 24 hour intake is 1160 mL, output is 500 mL. LABORATORY DATA: The patient has not had any labs done. IMPRESSION: ATRIAL FIBRILLATION WITH STILL FAST VENTRICULAR RESPONSE. The patient is very anxious to go home and the patient appears to be very anxious and his anxiety and agitation is driving his heart rate up. Hence, we will discharge the patient on current medication which include as mentioned earlier; Eliquis, beta joseline, COLTON inhibitor, and digoxin. We will follow the patient in the office if the patient so desires. His medications have been reviewed and discussed with the hospitalist. If the patient is kept in the hospital his heart rate is not going to come down. In his home environment the heart rate has a chance to come down. Medical decision making is of high complexity. If the patient desires we will follow up the patient in the office. I discussed the case with the other caregiving providers on the case. We will discharge the patient home. DICTATING PHYSICIAN: ANGEL VIVAS M.D. [id number] RO#: [id number] ID: [id number] JOB#: [id number] ACCT: [id number] cc: >
--- NOTE | 2017-09-30 12:53 | PROGRESS NOTE E ---
Progress Note NAME: GULSHAN FRASER : 1930 AGE: 86Y DATE: 09/29/2017 ROOM: 527 ADDENDUM IMPRESSION: 1. ATRIAL FIBRILLATION WITH STILL UNCONTROLLED VENTRICULAR RESPONSE. Patient desires to go home, and to send him home on current medication. 2. CHEST PAIN, RESOLVED, MOST LIKELY NON-CARDIAC. 3. BILATERAL BASAL PNEUMONIA, SMALL, WITH BILATERAL SMALL PLEURAL EFFUSIONS. This has resolved. 4. CHRONIC KIDNEY DISEASE, STAGE III. Patient's baseline is not known. 5. HISTORY OF CORONARY ARTERY DISEASE WITH NO DEFINITE ANGINAL SYMPTOMS. 6. HISTORY OF OLD MYOCARDIAL INFARCTION AND HISTORY OF STRESS TEST SHOWING BASAL AND MID-INFERIOR WALL MYOCARDIAL INFARCTION. 7. HYPERTENSION. RECOMMENDATIONS: As mentioned earlier; please see the progress note for further management details. DICTATING PHYSICIAN: ANGEL VIVAS M.D. [id number] PHY#: [id number] ID: [id number] JOB#: [id number] ACCT: [id number] cc:ANGEL VIVAS M.D. >
--- NOTE | 2017-09-30 13:05 | EKG REPORT ---
SEVERITY:- ABNORMAL ECG - ATRIAL FIBRILLATION, V-RATE 71-138 RIGHT BUNDLE BRANCH BLOCK INFERIOR INFARCT, AGE INDETERMINATE : Confirmed by: Carrie Grant 30-Sep-2017 13:05:33
== END 2017-09-29 14:00 | disposition home or self-care (01) | DRG 309 ==
LOC: ER 13:35 → EH 16:56 → 3N 18:47 → 5 09-28 02:15
PROVIDERS: ADMIT Family Medicine; ATTEND Internal Medicine
DX: I48.91 Unspecified atrial fibrillation (principal); I13.0 Hypertensive heart and chronic kidney disease with heart failure and stage 1 through stage 4 chronic kidney disease, or unspecified chronic kidney disease; I50.9 Heart failure, unspecified; K21.9 Gastro-esophageal reflux disease without esophagitis; N18.3 Chronic kidney disease, stage 3 (moderate); I08.1 Rheumatic disorders of both mitral and tricuspid valves; M19.90 Unspecified osteoarthritis, unspecified site; R07.89 Other chest pain; I45.10 Unspecified right bundle-branch block; I25.10 Atherosclerotic heart disease of native coronary artery without angina pectoris; I25.2 Old myocardial infarction; Z66 Do not resuscitate; E66.3 Overweight; Z68.28 Body mass index [BMI] 28.0-28.9, adult; Z95.5 Presence of coronary angioplasty implant and graft; Z79.82 Long term (current) use of aspirin; Z79.899 Other long term (current) drug therapy; Z60.2 Problems related to living alone; Z82.49 Family history of ischemic heart disease and other diseases of the circulatory system
CPT/HCPCS: 36415; 71010; 71275; 78452; 80048; 80053; 80061; 80076; 82550; 82553; 83036; 83735; 83880; 84443; 84484; 85025; 85379; 93005; 93010; 93017; 93306; 96365; 96366; 99285; A9500; J1160; J2785; J3490; J7030; J7040; Q9969

== ENCOUNTER 2018-06-02 08:35 | Day surgery (SDC) | payer OTHER, MEDICARE ==
[~2018-06-02 08:35] MED LIST: KETOROLAC TROMETHAMINE 0.45% 4 DROP/0.4 ML DROPERETTE OS PRN; MIDAZOLAM 2 MG/2 ML INJ ONE
[2018-06-02] MEDS: TROPICAMIDE 1% OPH SOLN 3 ML OS PRN ×3 (09:13→09:45)
[2018-06-02] MEDS: CYCLOPENTOLATE 0.2%/PHENYLEPHRINE 1% OPH SOLN 2 ML OS PRN ×3 (09:13→09:45)
[2018-06-02] MEDS: BESIFLOXACIN HCL 0.6% OPH SUSP 5 ML BOTTLE OS PRN ×4 (09:14→10:28)
[2018-06-02] MEDS: TETRACAINE HCL 0.5% OPH SOLN 2 ML OS PRN ×4 (09:15→10:05)
[2018-06-02] MEDS: EPINEPHRINE INJ/PF 1 MG/1 ML AMPULE ONE ×2 (10:12)
[2018-06-02] MEDS: CHONDR SU A NA/HYALUR INTRAOC KIT (SURGICARE) ONE ×2 (10:12)
[2018-06-02] MEDS: LIDOCAINE 1% INJ-PF (10 MG/ML) 30 ML SDV ONE ×2 (10:12)
[2018-06-02] MEDS ORDERED: LIDOCAINE 1%/PHENYLEPHRINE 1.5% 1 ML VIAL ONE (10:37)
--- NOTE | 2018-06-02 20:01 | [facility] OPERATIVE REPORT E ---
[facility] Operative Report NAME: GULSHAN FRASER AGE: 87Y DATE OF SURGERY: 06/02/2018 ROOM: PREOPERATIVE DIAGNOSIS: CATARACT, LEFT EYE. POSTOPERATIVE DIAGNOSIS: CATARACT, LEFT EYE. OPERATION: Cataract extraction with insertion of an IOL of the left eye. SURGEON: MICHAEL CAPUTO M.D. ANESTHESIA: Topical. PROCEDURE: After obtaining appropriate consent, the patient's left eye was prepped and draped in sterile fashion as well as the surgeon in a sterile manner and cataract surgery was started. First a paracentesis blade was used to make a side-port incision. Viscoelastic was used to inflate the anterior chamber. Next a 2.4 mm incision was made with a 2.4 mm blade, clear corneal temporally. A continuous capsulorrhexis was made using a cystotome and Utrata forceps. Following this hydrodissection was carried out to make the lens fully loose and mobile and it was rotated 90 degrees. Following this, a [id number] technique was used to phacoemulsify the lens with a CDE of 7.38. The remaining cortex was removed with irrigation/aspiration. Provisc was instilled into the capsular bag to inflate the bag. A SN60WF, 23.5 diopter lens was placed. The remaining viscoelastic material was removed with irrigation/aspiration. Following this, the incision was found to be watertight. Besivance was instilled into the eye and a protective shield was placed over the eye. The patient returned to the postoperative recovery in stable condition. DICTATING PHYSICIAN: MICHAEL CAPUTO M.D. [id number] PHY#: [id number] ID: [id number] JOB#: [id number] ACCT: [id number] cc:MICHAEL CAPUTO M.D. >
--- NOTE | 2018-06-02 20:01 | [facility] DISCHARGE SUMMARY E ---
[facility] Discharge Summary NAME: GULHSAN FRASER AGE: 87Y ADMITTED: 06/02/2018 DISCHARGED: 06/02/2018 HOSPITAL COURSE: This is an 87-year-old male who underwent cataract extraction of the left eye. DIAGNOSIS: CATARACT, LEFT EYE. He underwent surgery because he was having a harder time reading road signs and words on the television. DISCHARGE INSTRUCTIONS: He should be on a regular diet. No bending at his waist, no heavy lifting. He should use his Besivance, Ilevro, and Durezol at 3 p.m. and 8 p.m. and sleep with a rigid shield. I will see him for his 1 day postoperative tomorrow. DICTATING PHYSICIAN: MICHAEL CAPUTO M.D. [id number] PHY#: [id number] ID: [id number] JOB#: [id number] ACCT: [id number] cc:MICHAEL CAPUTO M.D. >
== END 2018-06-02 11:15 | disposition home or self-care (01) ==
LOC: SC 08:35
PROVIDERS: ATTEND Internal Medicine
DX: H25.812 Combined forms of age-related cataract, left eye (principal); I49.9 Cardiac arrhythmia, unspecified; I10 Essential (primary) hypertension; K21.9 Gastro-esophageal reflux disease without esophagitis; Z79.01 Long term (current) use of anticoagulants; Z79.899 Other long term (current) drug therapy; Z79.82 Long term (current) use of aspirin; I25.2 Old myocardial infarction; Z87.891 Personal history of nicotine dependence
CPT/HCPCS: 66984; V2632; J2250; J3490 ×2; J0171; J2370; 142